=== PATIENT | male | born 1995 ===

== ENCOUNTER 2016-06-15 20:10 | Emergency (ER) | payer OTHER ==
[2016-06-15 20:34] VITALS: BP 157/86; PULSE 105; RESP 18; TEMP 98.1; O2SAT 100
[2016-06-15] MEDS ORDERED: Morphine 2 mg/ml ISec IVP STA (20:37)
[2016-06-15] MEDS ORDERED: Sodium Chloride 0.9% 1,000 ML IV STA (20:38)
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
[2016-06-15 21:07] LABS: ADD MANUAL DIFF? NO
[2016-06-15 21:33] LABS: BASO # 0.03 K/mm3 (0.0-2.0); BASO % 0.4 % (0.0-3.0); EOS # 0.1 (0.0-0.7); EOS % 1.8 % (1.5-5.0); GRAN # 5.47 (1.4-6.5); GRAN % 70.4 % (50.0-68.0); LYMPH # 1.5 (1.2-3.4); LYMPH % 19.7 % (22.0-35.0); MEAN CELL VOLUME 85.8 fL (80.0-105.0); MONO # 0.6 (0.1-0.6); MONO % 7.7 % (1.0-6.0); PLATELET COUNT 283 10^3/uL (120.0-450.0); RED CELL DISTRIBUTION WIDTH 12.6 % (11.5-14.5); WHITE BLOOD COUNT 7.8 10^3/ul (4.5-11.0)
[2016-06-15 21:37] LABS: ALB/GLOB RATIO 1.3 (1.1-1.8); ALKALINE PHOSPHATASE 95 U/L (38-133); ALT/SGPT 56 U/L (7-56); AST/SGOT 44 U/L (15-59); BILIRUBIN,TOTAL 1.6 mg/dL (0.2-1.3); BLOOD UREA NITROGEN 18 mg/dL (7-21); CALCIUM 9.2 mg/dL (8.4-10.5); CARBON DIOXIDE 27 mmol/L (21-33); CHLORIDE 100 mmol/L (98-107); GFR AFRICAN-AMERICAN > 60; GLUCOSE,RANDOM 99 mg/dL (70-110); POTASSIUM 3.8 mmol/L (3.6-5.0); SODIUM 138 mmol/L (132-148); TOTAL PROTEIN 7.6 g/dL (5.8-8.3)
[2016-06-15 21:39] LABS: INR 0.99 (0.93-1.08); PARTIAL THROMBOPLASTIN TIME 26.6 Seconds (23.7-30.8)
[2016-06-15] MEDS ORDERED: Iohexol 350 MG/100 ML VIAL ONE (21:41)
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
[2016-06-15] MEDS ORDERED: Bacitracin 500 Units/gm Oint Foilpak UD TOP STA (22:57)
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
== END 2016-06-16 00:05 | disposition home or self-care (01) ==
LOC: ED 20:10
DX: S53.402A Unspecified sprain of left elbow, initial encounter (principal); S50.812A Abrasion of left forearm, initial encounter; V49.40XA Driver injured in collision with unspecified motor vehicles in traffic accident, initial encounter
CPT/HCPCS: 70450; 71260; 72125; 73060; 73080; 73090; 74177; 80053; 85025; 85610; 85730; 96361; 96374; 99284; J2270; J7040; Q9967